=== PATIENT | male | born 1940 | race Caucasian/White ===

== ENCOUNTER → 2017-09-25 | Outpatient (CLI) | payer MEDICARE ==
--- NOTE | 2017-09-25 19:29 | MR ---
EXAMINATION TYPE: MR brain wo/w con DATE OF EXAM: 09/25/2017 COMPARISON: Correlation CT performed on 12/06/2014 HISTORY: 77-year-old male LOSS OF BALANCE, ALTERED MENTAL STATUS TECHNIQUE: Multiplanar, multisequence images of the brain and brainstem were acquired before and aft er administration of 7.5 mL IV Gadavist. Diffusion weighted imaging is performed. FINDINGS: No evidence for acute infarction, hemorrhage, mass, mass effect, midline shift, herniation, effacemen t of basal cisterns, or extra-axial fluid collection. The ventricles and sulci are age appropriate with a moderate generalized supratentorial volume loss a nd secondary mild ex vacuo enlargement of the ventricular system. Relatively similar to 2015. Major intracranial flow voids are intact. T2/FLAIR weighted sequences show moderate scattered periventricular and deep white matter bright sign al change in both cerebral hemispheres slightly patchy and confluent in the posterior frontal lobes a nd centrum semiovale regions. Additional patchy white matter changes in the bilateral paramedian daria . Midline structures demonstrate normal morphology. The craniocervical junction is normal. Post contrast images demonstrate no evidence of pathologic enhancement. Dural venous sinuses are pat ent. Mucosal thickening ethmoid air cells. Previous bilateral cataract surgery. IMPRESSION: 1. No acute intracranial abnormality seen. No enhancing intracranial lesions. 2. Similar atrophy especially with moderate central cerebral atrophy and moderate scattered burden of chronic small vessel ischemic disease.
== END | disposition home or self-care (01) ==
LOC: RADMRIMAIN 17:02
PROVIDERS: ATTEND Family Medicine
DX: I67.82 Cerebral ischemia (principal); G31.9 Degenerative disease of nervous system, unspecified
CPT/HCPCS: 82565; 70553; 36415; A9581